=== PATIENT | female | born 1940 | race Caucasian/White ===

== ENCOUNTER → 2017-06-19 | Outpatient (CLI) | payer MEDICARE, OTHER ==
--- NOTE | 2017-06-06 08:34 | MH ---
cc: RADHA DOE DATE OF ADMISSION 06/19/2017 ADMISSION DIAGNOSIS Cloudy posterior capsule, left eye. HISTORY OF PRESENT ILLNESS This 76-year-old white female is coming through [facility] for the purpose of a YAG laser posterior capsulotomy of the left eye. She is status post bilateral cataract surgery with intraocular lens implants in the past and YAG laser posterior capsulotomy in the right eye. She now notices decreasing acuity in the left eye and was found to have a cloudy posterior capsule and elected to have a YAG laser posterior capsulotomy in the left eye at this point. PAST MEDICAL HISTORY 1. Diabetes for 48 years on insulin pump. 2. Thyroid problems. 3. Mini stroke in 2010. 4. Degenerative disc disease. PAST SURGICAL HISTORY 1. Bilateral cataract surgery. 2. YAG laser posterior capsulotomy in the right eye. 3. Laser peripheral iridectomy in both eyes for narrow anterior chamber angles. 4. Breast surgery. 5. Hysterectomy. 6. Carpal tunnel surgery. 7. Groin surgery for an enlarged lymph node. 8. Bladder surgery. 9. Root canal. MEDICATIONS Daily medications include: 1. Synthroid. 2. Fosinopril. 3. Multivitamins. 4. Selenium. 5. Tums. 6. Insulin pump. 7. Glucosamine. ALLERGIES 1. ASPIRIN UPSETS HER STOMACH. 2. PILOCARPINE CAUSES NAUSEA AND VOMITING. 3. DARVOCET. 4. CODEINE. 5. ERYTHROMYCIN OINTMENT. FAMILY HISTORY Positive for brother with cataract. SOCIAL HISTORY Noncontributory. REVIEW OF SYSTEMS Noncontributory. OCULAR EXAMINATION On ocular exam the patient's best-corrected visual acuity is 20/20 -2 in the right eye and 20/30 -1 in the left. Visual dow are full to confrontation testing. Extraocular muscle exam reveals full versions with orthophoria at distance and near. Pupils are 3 mm, equal, round, reactive to light without afferent defect. Anterior segment examination reveals a posterior chamber intraocular lens in place bilaterally with a YAG laser posterior capsulotomy in the right eye and a cloudy posterior capsule in the left. Intraocular pressure is 20 in the right eye and 19 in the left by applanation tonometry. Dilated fundus exam revealed sharp disks with cup-to-disk ratio of 0.55 bilaterally. The macula is clear and a posterior vitreous detachment is present bilaterally. IMPRESSION 1. Cloudy posterior capsule, left eye. 2. Pseudophakia, both eyes. 3. Posterior vitreous detachment, both eyes. 4. Glaucoma suspect - low risk, both eyes. PLAN YAG laser posterior capsulotomy of the left eye through [facility]. MD HIGINIO Briggs/BREANNA /11:57 AM /8:31 AM
[~2017-06-19] MED LIST: BALANCED SALT SOLN OPHT IRRIG 15 ML BTL ONE; CORTI10A AS; FLUOROMETHOLONE 0.25% OPHT SUSP 5 ML BTL ONE; FOSI10TA4 PO; GLUCTAB47 PO; INSULIN PUMP; LEVO.1 PO; MECL25 PO; NIAC50TA PO; PHENYLEPHRINE HCL 2.5% OPTH SOLN 2 ML BTL ONE; PROM25SU8 PO; PROPARACAINE HCL 0.5% OPHT SOLN 15 ML BTL ONE; SELENIUM; TAB-TAB PO; TOLT4 PO; TROPICAMIDE 1% OPHT SOLN 15 ML BTL ONE; VESI5TAB PO
--- NOTE | 2017-06-20 11:53 | MP ---
cc: RADHA ORTEGA DATE OF SURGERY: 06/19/2017 PREOPERATIVE DIAGNOSIS: Cloudy posterior capsule left eye. POSTOPERATIVE DIAGNOSIS: Cloudy posterior capsule left eye. OPERATION: YAG laser posterior capsulotomy, left eye. SURGEON: Radha Ortega MD ANESTHESIA: Topical. COMPLICATIONS: None. INDICATIONS: See history and physical previously dictated. PROCEDURE: The patient arrived at [facility]. Blood pressure was 138/61, pulse 64, respirations 18. A drop of Alphagan P and Mydriacyl were instilled in the left eye. The patient was seated at the YAG laser. A drop of Alcaine was instilled in the left eye and a YAG laser posterior capsulotomy lens was placed on the anterior surface of the left cornea. YAG laser posterior capsulotomy was carried out utilizing 4 exposures of 1.6 millijoules. Following these laser spots, the laser stopped functioning and the procedure had to be discontinued. The patient may have to return to complete the case on another day when the laser has been fixed. A drop of Alphagan P was instilled topically. The patient was given a prescription for a topical steroid to be used four times per day and has an appointment for follow up on the first postoperative day in my office. [facility]. The case had to be postponed after some of it was completed. MD HIGINIO Briggs/ /1:10 PM /11:40 AM
== END ==
LOC: PHSDC 11:31
PROVIDERS: ATTEND Ophthalmology
DX: H26.492 Other secondary cataract, left eye (principal); H43.813 Vitreous degeneration, bilateral; H40.003 Preglaucoma, unspecified, bilateral; E11.9 Type 2 diabetes mellitus without complications; E07.9 Disorder of thyroid, unspecified; Z79.4 Long term (current) use of insulin; Z86.73 Personal history of transient ischemic attack (TIA), and cerebral infarction without residual deficits

== ENCOUNTER → 2017-07-17 | Outpatient (CLI) | payer MEDICARE, OTHER ==
[~2017-07-17] MED LIST changes: +BRIMONIDINE TARTRATE 0.15% OPHT SOLN 5 ML BTL ONE; +HYPROMELLOSE 0.3 % OPTH GEL 10 GM (0.34 FL OZ) TUBE ONE
--- NOTE | 2017-07-17 13:23 | MP ---
cc: Ritesh Ortega MD DATE OF OPERATION: 07/17/2017 POSTOPERATIVE DIAGNOSIS: Cloudy posterior capsule left eye. OPERATION: YAG laser posterior capsulotomy, left eye. SURGEON: Ritesh Ortega MD ANESTHESIA: Topical. COMPLICATIONS: None. INDICATIONS: See history and physical previously dictated. This procedure was to complete the procedure that was started on 06/19/2017, but the laser stopped functioning after 4 spots, so this was the completion of that procedure. PROCEDURE: The patient arrived at [facility]. Blood pressure was 134/61, pulse 78, respirations 16. A drop of Alphagan P and Mydriacyl were instilled in the left eye. The patient was seated at the YAG laser. A drop of Alcaine was instilled in the left eye and a YAG laser posterior capsulotomy lens was placed on the anterior surface of the left cornea. YAG laser posterior capsulotomy was carried out utilizing 55 exposures of 1.6 millijoules. An adequate opening was seen following the procedure. A drop of Alphagan P was instilled topically. The patient was given a prescription for a topical steroid to be used four times per day and has an appointment for follow up on the first postoperative day in my office. The patient left the [facility] in satisfactory condition. Ritesh Ortega MD LICENSED PRACTICAL NURSE/DL , 01:09 PM , 01:21 PM
== END ==
LOC: PHSDC 10:51
PROVIDERS: ATTEND Ophthalmology
DX: H26.492 Other secondary cataract, left eye (principal)